=== PATIENT | female | born 1965 | race African-American/Black ===

== ENCOUNTER 2016-08-25 08:15 | Emergency (ER) | payer OTHER ==
[~2016-08-25] VITALS: Ht 162.6 cm; Wt 95.0 kg
[~2016-08-25 08:15] MED LIST: ASPI-518; HYDR25TA; LORA-250
[2016-08-25] MEDS ORDERED: LIDOCAINE HCL 1% 20ML VIAL (Pyxis) INJ MC ONE (09:15)
[2016-08-25] MEDS ORDERED: TETANUS, DIPHTHERIA, PERTUSSIS VAC/PF 0.5ML (>7YR OLD) IM ONE (09:15)
[2016-08-25] MEDS ORDERED: TRAMADOL 50MG TABLET PO ONE (09:15)
[2016-08-25] MEDS ORDERED: BACITRACIN ZINC OINT UDPKT TOP ONE (09:15)
[2016-08-25 09:35] VITALS: BP 146/84
== END 2016-08-25 10:41 | disposition home or self-care (01) ==
LOC: ER 08:22
DX: S61.215A Laceration without foreign body of left ring finger without damage to nail, initial encounter (principal); I10 Essential (primary) hypertension; E07.9 Disorder of thyroid, unspecified; Z79.82 Long term (current) use of aspirin; Z88.8 Allergy status to other drugs, medicaments and biological substances; Z79.899 Other long term (current) drug therapy; W25.XXXA Contact with sharp glass, initial encounter; Y93.89 Activity, other specified; Y92.9 Unspecified place or not applicable; Y99.8 Other external cause status
CPT/HCPCS: 12001; 90471; 90715; 99283; J3490